=== PATIENT | female | born 1975 | race Caucasian/White ===

== ENCOUNTER 2019-05-07 17:37 | Emergency (ER) | payer OTHER ==
[~2019-05-07] VITALS: Ht 157.5 cm; Wt 102.1 kg
[~2019-05-07 17:37] MED LIST: BISA5EC PO; ERGO50000 PO; Hair, Skin & N1 EACH PO; IBUP800 PO; LORA2 PO; METF500C PO; OXYACE5T PO; RXLORA1 PO
[2019-05-07] MEDS ORDERED: Zithromax250 MG PO (19:32)
== END 2019-05-07 19:51 | disposition home or self-care (01) ==
LOC: ER 17:37
DX: J18.9 Pneumonia, unspecified organism (principal)
CPT/HCPCS: 71046; 99283-25

== ENCOUNTER → 2020-05-29 | Outpatient (CLI) | payer OTHER ==
[~2020-05-29] MED LIST changes: +Zithromax250 MG PO
[2020-05-30 09:08] LABS: HIV SCREEN 4TH GENERATION WRFX Non Reactive (Non Reactive)
[2020-05-30 09:32] LABS: HBSAG SCREEN Negative (Negative); HEP A AB, IGM Negative (Negative); HEP B CORE AB, IGM Negative (Negative); HEP C VIRUS AB <0.1 (0.0-0.9)
[2020-05-30 20:06] LABS: CHLAMYDIA TRACHOMATIS, NAA Negative (Negative); NEISSERIA GONORRHOEAE, NAA Negative (Negative)
== END ==
LOC: LAB EV 13:01 → LAB SHORT 13:01
PROVIDERS: Physician Assistant Medical
DX: N76.0 Acute vaginitis (principal); Z72.51 High risk heterosexual behavior
CPT/HCPCS: 80074; 87070; 87205; 87389; 87491; 87591

== ENCOUNTER 2023-01-18 20:47 | Emergency (ER) | payer OTHER ==
[~2023-01-18] VITALS: Ht 154.9 cm; Wt 114.8 kg
[2023-01-18 21:39] LABS: BASOPHILS ABSOLUTE AUTO 0.08 K/mm3 (0.00-0.23); BASOPHILS PERCENT AUTO 1 % (0-2); EOSINOPHILS ABSOLUTE AUTO 0.14 K/mm3 (0.00-0.68); EOSINOPHILS PERCENT AUTO 1 % (0-6); Hematocrit 38.6 % (33.0-51.0); Hemoglobin 12.5 g/dL (11.5-16.0); IMMATURE GRAN ABSOLUTE AUTO 0.05 K/mm3 (0.00-0.10); IMMATURE GRAN PERCENT AUTO 1 % (0-1); LYMPHOCYTES ABSOLUTE AUTO 2.28 K/mm3 (0.84-5.20); LYMPHOCYTES PERCENT AUTO 22 % (21-46); MONOCYTES ABSOLUTE AUTO 0.62 K/mm3 (0.16-1.47); MONOCYTES PERCENT AUTO 6 % (4-13); Mean Corpuscular HGB 28.2 pg (26.0-34.0); Mean Corpuscular HGB Conc 32.4 g/dL (31.5-36.5); Mean Corpuscular Volume 87 fL (80-100); Mean Platelet Volume 9.8 fL (9.1-12.4); NEUTROPHILS ABSOLUTE AUTO 7.19 K/mm3 (1.96-9.15); NEUTROPHILS PERCENT AUTO 69 % (41-73); Platelet Count 275 K/mm3 (150-400); RDW Coefficient Variation 13.6 % (11.7-14.2); RDW Standard Deviation 43.4 fL (35.1-46.3); Red Blood Cell Count 4.43 M/mm3 (3.80-5.20); White Blood Cell Count 10.36 K/mm3 (4.00-11.30)
[2023-01-18 22:11] LABS: Albumin, Blood 3.4 g/dL (3.4-5.0); Albumin/Globulin Ratio 0.9 (0.8-1.8); Bilirubin, Total 0.4 mg/dL (0.1-1.0); Bun/Creatinine Ratio 14.4 (12.0-20.0); Calcium, Blood 9.3 mg/dL (8.5-10.1); Creatinine, Blood 1.04 mg/dL (0.40-1.00); Globulin, Blood 3.9 g/dL (2.2-4.0); Total Protein, Blood 7.3 g/dL (6.4-8.2)
[2023-01-18 23:23] VITALS: BP 141/88
== END 2023-01-18 23:40 | disposition home or self-care (01) ==
LOC: ER 20:47
PROVIDERS: Student in an Organized Health Care Education/Training Program
DX: R07.89 Other chest pain (principal)
CPT/HCPCS: 71046; 80053; 84484; 85025; 93005; 93010; 99285-25

== ENCOUNTER 2023-10-19 14:24 | Emergency (ER) | payer OTHER ==
[~2023-10-19] VITALS: Ht 154.9 cm; Wt 119.3 kg
[2023-10-19 15:03] LABS: BASOPHILS ABSOLUTE AUTO 0.08 K/mm3 (0.00-0.23); BASOPHILS PERCENT AUTO 1 % (0-2); EOSINOPHILS ABSOLUTE AUTO 0.11 K/mm3 (0.00-0.68); EOSINOPHILS PERCENT AUTO 1 % (0-6); Hematocrit 40.7 % (33.0-51.0); IMMATURE GRAN ABSOLUTE AUTO 0.09 K/mm3 (0.00-0.10); IMMATURE GRAN PERCENT AUTO 1 % (0-1); LYMPHOCYTES ABSOLUTE AUTO 2.27 K/mm3 (0.84-5.20); LYMPHOCYTES PERCENT AUTO 23 % (21-46); MONOCYTES ABSOLUTE AUTO 0.64 K/mm3 (0.16-1.47); MONOCYTES PERCENT AUTO 6 % (4-13); Mean Corpuscular HGB Conc 31.9 g/dL (31.5-36.5); Mean Corpuscular Volume 88 fL (80-100); Mean Platelet Volume 9.5 fL (9.1-12.4); NEUTROPHILS PERCENT AUTO 68 % (41-73); Platelet Count 269 K/mm3 (150-400); RDW Coefficient Variation 13.8 % (11.7-14.2); RDW Standard Deviation 43.8 fL (35.1-46.3); Red Blood Cell Count 4.64 M/mm3 (3.80-5.20); White Blood Cell Count 9.99 K/mm3 (4.00-11.30)
[2023-10-19 15:24] LABS: Albumin, Blood 3.5 g/dL (3.4-5.0); Albumin/Globulin Ratio 0.9 (0.8-1.8); Bilirubin, Total 0.3 mg/dL (0.1-1.0); Bun/Creatinine Ratio 21.9 (12.0-20.0); Calcium, Blood 9.6 mg/dL (8.5-10.1); Creatinine, Blood 0.64 mg/dL (0.40-1.00); Potassium, Blood 3.9 mmol/L (3.5-5.5); Total Protein, Blood 7.5 g/dL (6.4-8.2)
[2023-10-19] MEDS ORDERED: BIOTIN1 MG PO (17:21)
[2023-10-19] MEDS ORDERED: LISI5 PO (17:21)
[2023-10-19 18:15] VITALS: BP 130/84
== END 2023-10-19 18:21 | disposition home or self-care (01) ==
LOC: ER 14:24
PROVIDERS: Physician Assistant
DX: R42 Dizziness and giddiness (principal); R07.9 Chest pain, unspecified; Z79.899 Other long term (current) drug therapy
CPT/HCPCS: 80053; 85025; 93005; 93010; 99284-25

== ENCOUNTER → 2024-03-03 | Outpatient (CLI) | payer OTHER ==
[~2024-03-03] MED LIST changes: +BIOTIN1 MG PO; +LISI5 PO
[2024-03-03 12:59] LABS: Microalb/Creat Ratio UR, Rand 7.369 mg/g (0.000-30.000); Microalbumin, Random Urine 8.18 mg/L (0.000-20.000)
== END | disposition home or self-care (01) ==
LOC: LAB 07:57 → LAB SHORT 07:57
PROVIDERS: Family Medicine
DX: E11.9 Type 2 diabetes mellitus without complications (principal)
CPT/HCPCS: 82043; 82570

== ENCOUNTER 2025-07-09 14:17 | Emergency (ER) | payer OTHER ==
[~2025-07-09] VITALS: Ht 154.9 cm; Wt 111.1 kg
[2025-07-09 17:15] VITALS: BP 158/71
== END 2025-07-09 17:30 | disposition home or self-care (01) ==
LOC: ER 14:17
DX: M25.551 Pain in right hip (principal); Z79.899 Other long term (current) drug therapy
CPT/HCPCS: 73502; 99283-25; A9270